=== PATIENT | female | born 1940 | race Caucasian/White ===

== ENCOUNTER 2022-01-30 15:29 | Outpatient (REF) | payer MEDICARE, SELFPAY ==
[2022-01-30 16:21] LABS: Blood Urea Nitrogen 17 mg/dL (9-16); Estimated Glomerular Filt Rate > 60
[2022-01-30 16:31] LABS: Erythrocyte Sedimentation Rate 11 MM/HR (0-20)
[2022-02-01 18:01] LABS: Lyme Abs Screen <0.90 index
== END 2022-01-30 15:30 | disposition home or self-care (01) ==
LOC: HO.LAB 15:29
PROVIDERS: PCP Physician Assistant Medical; Visit Provider Psychiatry & Neurology Neurology
DX: G43.909 Migraine, unspecified, not intractable, without status migrainosus (principal); G93.9 Disorder of brain, unspecified
CPT/HCPCS: 36415; 82565; 84520; 85652; 86617; 86618

== ENCOUNTER 2022-02-08 11:06 | Outpatient (REF) | payer MEDICARE, OTHER, SELFPAY ==
--- NOTE | ~2022-02-08 | MR_ITS ---
EXAMINATION: MR BRAIN WITHOUT AND WITH CONTRAST CLINICAL INFORMATION: 81-year-old with previous diagnosis of trigeminal and occipital neuralgia, with pain in head. Evaluate for brain lesion. COMPARISON: Outside CT brain report from 12/26/2021. TECHNIQUE: Multiplanar, multisequence MRI of the brain was obtained before and after the intravenous administration of 7 mL Gadavist. FINDINGS: Brain Volume: Mild generalized brain parenchymal volume loss without focal regional predominance within the limitations of a qualitative assessment. Structural: 4 mm benign pineal cyst. Brain and Meninges: DWI sequence demonstrates no restricted diffusion. Specifically, there is no evidence for acute or subacute cerebral ischemia. Numerous patchy zones of FLAIR/T2 signal hyperintensity in the subcortical and deeper white matter of both cerebral hemispheres with extensive confluent deep periventricular T2 hyperintensity which is noted to be relatively T1 hypointense with no abnormal enhancement consistent with advanced chronic ischemic microangiopathy and/or subcortical arteriosclerotic encephalopathy. Prominent perivascular spaces are noted at the inferolateral basal ganglia bilaterally. Gradient refocused imaging demonstrates no evidence for hemorrhage, hemosiderin staining or abnormal mineral deposition. No extra-axial fluid collections, intracranial mass lesions, abnormal enhancement, space-occupying process or mass effect are identified. Ventricles and Subarachnoid Spaces: The ventricular system and subarachnoid spaces are consistent with mild generalized volume loss without hydrocephalus. Orbital Structures: Bilateral lens extractions are noted. Otherwise, the visualized orbital structures are grossly unremarkable within the limitations of the study. Vascular: Signal voids are noted in the visualized major intracranial vessels. Osseous Structures, Sinuses/Mastoids, Extracranial Soft Tissues: Minimal retained secretions in the mastoids bilaterally are noted. Osseous marrow signal intensity appears relatively homogenous. Multilevel upper cervical DDD and spondylosis noted, with mild anterolisthesis at C3-C4. Visualized extracranial soft tissue structures appear grossly unremarkable. MR/MR head/brain wo/w con IMPRESSION: 1. Findings suggestive of subcortical arteriosclerotic encephalopathy in the supratentorial brain, as described above, with advanced chronic ischemic microangiopathy noted. 2. No intracranial mass lesions, abnormal enhancement, hemorrhage, extra-axial fluid collection, space-occupying process, mass effect or hydrocephalus.
== END 2022-02-08 11:07 | disposition home or self-care (01) ==
LOC: HO.MRI 11:06
PROVIDERS: PCP Physician Assistant Medical; Visit Provider Psychiatry & Neurology Neurology
DX: G93.9 Disorder of brain, unspecified (principal)
CPT/HCPCS: 70553; A9585

== ENCOUNTER 2025-04-18 15:58 | Outpatient (AMB) | payer MEDICARE, OTHER, SELFPAY ==
--- OUTSIDE RECORDS SUMMARY | 2025-04-18 16:06 | XMS_ITS ---
Author Name [facility] Organization Unknown History of Medication Use Medication Directions Dispensed Refills Start Date End Date Stat us acetaminophen (TYLENOL) 325 MG tablet Take 3 tablets (975 mg total) by mouth every 8 (eight) hours around the clock. 07/04/2020 active Calcium Citrate-Vitamin D (CALCIUM + D PO) Take 1 capsule by mouth every morning. Calcium 1200 mg vitamin D 1000. Stop on 06/26/2020. active metoPROLOL SUCCINATE (TOPROL-XL) 25 MG 24 hr tablet Take 25 mg by mouth every morning. Take day of surgery active raLOXifene (EVISTA) 60 MG tablet Take 60 mg by mouth every morning. Stop 06/13/2020. active triazolam (HALCION) 0.25 MG tablet Take 0.25 mg by mouth every evening. Take the night before surgery active Allergies Allergen Reaction Severity Comment Documented Date Source Statu s SULFA ANTIBIOTICS OTHER (SEE COMMENTS) Headaches 06/07/2020 [facility] active ATORVASTATIN MYALGIA/MYOSITIS/A RTHRALGIA/ARTHRITI S [facility] LATEX RASH/DERMATITIS [facility] STATINS MYALGIA/MYOSITIS/A RTHRALGIA/ARTHRITI S [facility] Problems Problem Status Onset Date Problem Type Date of Resolution Source Primary osteoarthritis of right knee active EncounterDiagnosisAct [facility]
--- OUTSIDE RECORDS SUMMARY | 2025-04-18 16:06 | XMS_ITS | Clinical Summary ---
Author Organization [facility] ity Address [address] [place] [address] Care Team Providers Care Russian Language Instructor Name Role Phone Unavailable Primary Care Provider Unavailabl e Social History Tobacco Use Types Packs/Day Years Used Date Smoking Tobacco: Never Assessed Comments Unknown Sex and Gender Information Value Date Recorded Sex Assigned at Not on file Legal Sex Female 7:24 PM EST Gender Identity Not on file Sexual Orientation Not on file Plan of Treatment Health Maintenance Due Date Last Done Comments DTaP,Tdap,and Td Vaccines (1 - Tdap) 1959 Pneumococcal Vaccine: 50+ Ye ars (1 of 1 - PCV) 1989 Zoster Vaccines (1 of 2) 1989 RSV Immunization Adult Patie nts (1 - 1-dose 75+ series) 2014 COVID-19 Vaccine ( - 2023-2 5 season) 2024 Depression Screening 09/22/2024 Influenza Vaccine (#1) 2025 HIB Vaccines Aged Out No longer eligi ble based on patient's age to complete this topic HPV Vaccines Aged Out No longer eligi ble based on patient's age to complete this topic Hepatitis A Vaccines Aged Out No long er eligible based on patient's age to complete this topic Hepatitis B Vaccines Aged Out No long er eligible based on patient's age to complete this topic IPV Vaccines Aged Out No longer eligi ble based on patient's age to complete this topic MMR Vaccines Aged Out No longer eligi ble based on patient's age to complete this topic Meningococcal ACWY Vaccine Aged Out N o longer eligible based on patient's age to complete this topic Meningococcal B Vaccine Aged Out No l onger eligible based on patient's age to complete this topic RSV Immunization Patients Un kenya 20 months Aged Out No longer eligible b ased on patient's age to complete this topic Varicella Vaccines Aged Out No longer eligible based on patient's age to complete this topic
--- NOTE | 2025-04-18 16:39 | A.OFFVIS_ITS ---
Intake Visit Reasons: Tremor, Parkinsons - last seen 2021 insomnia Allergies amoxicillin Allergy (Unknown, Verified 04/13/25 09:17) Unknown Medication List - Last Reconciled 04/18/25 by Angelo Lindsey MD ezetimibe 10 mg PO DAILY gabapentin mg PO metoprolol succinate ER 25 mg PO DAILY trazodone 50 mg PO DAILY HPI Comments Details: 85 years old woman who I initially saw in 2021 for a headaches syndrome. At that time her sed rate was 11 but later, and [place], she was diagnosed with temporal arteritis and was treated with steroids. This time she was here with a different complain of left hand shaking. She stated that this started around same time and it was slowly worsening. It was getting an embarrassment for her and was noted when she was not using her hand or just sitting with a friends. Sometime her left hand would also get stiff. No difficulty walking or falling or difficulty speaking. [facility] Medical History (Updated 04/18/25 @ 17:01 by Angelo Lindsey MD) Insomnia Cerebral microvascular disease Brain lesion Migraine Cervical spondylitis Review of Systems Const Details: Constitutional:?No fever, chills, fatigue, weight loss, or night sweats. HEENT:?No headache, vision changes, hearing loss, nasal congestion, sore throat. Neurological:? Left hand tremor Psychiatric:?No anxiety, depression, mood swings, sleep disturbance, or hallucinations. Endocrine:?No heat/cold intolerance, polydipsia, polyuria, or hair/skin changes. Hematologic/Lymphatic:?No easy bruising, bleeding, or lymphadenopathy. Integumentary (Skin):?No rash, lesions, itching, or color changes. ? Physical Exam Neuro Other: Mental Status: Alert and oriented to person, place, and time. Normal attention. Normal spontaneous speech, fluency, and comprehension. No obvious issues with mood and memory. Affect is appropriate. Cranial Nerves: CN II: Visual price full to confrontation, visual acuity intact. CN III, IV, : Pupils equal, round, reactive to light and accommodation. Extraocular movements are normal. CN V: Facial sensation is normal. CN VII: Facial movements symmetrical. CN VIII: Hearing intact to bedside conversation is normal. CN IX, X: Palate elevates symmetrically. CN XI: Shoulder shrug and head turn symmetrical. CN XII: Tongue midline without atrophy or fasciculations. Motor: Deep tendon reflexes are trace to absent. Planters are flexor. Extrapyramidal: Mild left hand resting tremor. Speech: Normal; no dysarthria or tremor. 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 She has noted this for last 2-3 years and it has slowly progress. On examination she has mild left hand resting tremor. Otherwise there no overt features of parkinsonism. Recommendations: I recommend a noncontrast MRI of brain to rule out any physical explanation, more commonly ischemic vascular disease. Medicine at this time is probably not needed as this type of tremor is usually more embarrassing than disabling. She was reassured and educated. Orders: Orders MR head/brain wo/w con Today G20.C - Parkinsonism, unspecified Vitamin B12 and Folate Today G31.84 - Mild cognitive impairment of uncertain or unknown etiology Coding Level of Care Code Tele New Pt Level 4 (83383) Diagnoses Parkinsonian tremor G20.C MCI (mild cognitive impairment) G31.84
== END 2025-04-18 17:11 | disposition home or self-care (01) ==
LOC: HO.HSM 15:59
PROVIDERS: PCP Internal Medicine; Referring Provider Internal Medicine; Visit Provider Psychiatry & Neurology Neurology
DX: G20.C Parkinsonism, unspecified (principal); G31.84 Mild cognitive impairment of uncertain or unknown etiology
CPT/HCPCS: 99204

== ENCOUNTER → 2025-04-18 15:58 | Outpatient (BNVA) | payer MEDICARE, OTHER, SELFPAY | PROVIDERS: PCP Internal Medicine; Referring Provider Internal Medicine; Visit Provider Psychiatry & Neurology Neurology | DX: G20.C Parkinsonism, unspecified (principal); G31.84 Mild cognitive impairment of uncertain or unknown etiology | CPT/HCPCS: 99202 ==

== ENCOUNTER → 2025-05-02 12:56 | Outpatient (BNV) | payer MEDICARE, OTHER, SELFPAY | PROVIDERS: PCP Internal Medicine; Visit Provider Radiology Diagnostic Radiology | DX: G20.C Parkinsonism, unspecified (principal) | CPT/HCPCS: 70553 ==

== ENCOUNTER 2025-05-02 12:59 | Outpatient (REF) | payer MEDICARE, OTHER, SELFPAY ==
--- NOTE | ~2025-05-02 | MR_ITS ---
EXAMINATION: MR BRAIN WITHOUT AND WITH CONTRAST CLINICAL INFORMATION: Parkinsonism's. COMPARISON: February 08, 2022. TECHNIQUE: Multiplanar, multisequence MRI of the brain was obtained before and after the intravenous administration of 7.0 mL gadolinium based (Gadavist) without reported immediate complications.. FINDINGS: No restricted diffusion. No acute intracranial hemorrhage.There is no swallow tail abnormality in the substantia nigra. No abnormal enhancement within the intra-axial or the extra-axial compartment of the cranium. No acute intracranial hemorrhage, mass effect, midline shift, hydrocephalus or herniation. Bilateral multifocal patchy and confluent deep periventricular white matter hyperintense T2 FLAIR signal involving centrum semiovale and barrera radiata. Flow-void signal within the main cerebral vessels is normal. Sellar/percent region demonstrated no signal abnormality or gross masses. Craniocervical junction demonstrates normal position of the cerebellar tonsils. MR/MR head/brain wo/w con IMPRESSION: No acute brain abnormality. White matter disease likely related to small vessel occlusive disease. Overall no gross change. Electronically signed by: Mohsen Chan MD 05/02/2025 02:29 PM EDT
--- OUTSIDE RECORDS SUMMARY | 2025-05-02 13:07 | XMS_ITS | Patient Health Record ---
Author Organization [facility] Address [address] [place], [place] [id number] Care Team Providers Care Principal Web Developer Name Role Phone Migration, Provider Unavailable Unavailable Reason For Referral No Information Medications Medication SIG (Take, Route, Frequency, Duration) Notes Start Date End Date Status raloxifene 60 mg *Reorder from [employer] for eRx and Interaction Alerts* Active atorvastatin *Reorder from [facility] for eRx and Interaction Alerts* Active Vitamin D3 Complete *Reorder fro m [facility] for eRx and Interaction Alerts* Active Toprol XL 25 mg *Pick strength-f orm from [facility] for eRX* Active Premarin *Pick strength-f orm from [facility] for eRX* Active Gabapentin 100 mg Ac tive clonazePAM 0.5 mg *Pick strength -form from [facility] for eRX* Active Aspirin Low Dose 81 mg *Pick strength-form from [facility] for eRX* Active Problems Problem Type SNOMED Code ICD Code Onset Dates Problem Status W/U Status Risk Notes Problem Hyperlipidemia (67020316) Hyperlipidemia , unspecified (E78.5) 01/07/20 Active confirmed Problem Heart disease (73500541) Heart disease, unspecified (I51.9) 01/07/20 Active confirmed heart attack 2015 Problem Arthropathy (635252128) Arthropathy, unspecified (M12.9) 01/07/20 Active confirmed Problem Spontaneous ecchymosis (215599035) Spontaneous ecchymoses (R23.3) 01/07/20 Active confirmed Encounters Encounter Location Date Provider Diagnosis [facility] [address] [place] [address] [address] [place], [place] [id number] 05/08/2024 Provider Migration [facility] [address] [place], [place] [id number] 05/09/2024 Provider Migration Plan Of Treatment No Information Insurance Providers Payer Name Payer Address Payer Phone Subscriber Number Group Number Insured Name Patient Relationship to Insured Coverage Start Date Coverage End Date Medicare Part B Id [address] DON[place] Perez [id number] Keke Ventura Self - patient is the insured 6
--- OUTSIDE RECORDS SUMMARY | 2025-05-02 13:07 | XMS_ITS | Clinical Summary ---
Author Organization [facility] ity Address [address] [place] [address] Care Team Providers Care Dairy Processing Supervisor Name Role Phone Unavailable Primary Care Provider [...]
--- OUTSIDE RECORDS SUMMARY | 2025-05-02 13:07 | XMS_ITS | Clinical Summary ---
Author Organization [facility] Address [address] [place] [address] Care Team Providers Care Compliance Mgr Name Role Phone Babar Barry MD Primary Care Provider + Jose Castro MD Unavailable Yoanna Lugo MD Unavailable [phone] Polo Cartagena MD Unavailable [phone] Merrick Wolff MD Unavailable [phone] Allergies Active Allergy Reactions Criticality Noted Date Comments Atorvastatin Myalgia/Myositis/Art hralgia/Arth ritis Low 06/07/2020 Latex Rash/Dermatitis Medium 06/07/2020 Statins Myalgia/Myositis/Art hralgia/Arth ritis Low 06/07/2020 Sulfa Antibiotics Other (See Comments) Medium 06/07/20 20 Headaches Medications metoPROLOL SUCCINATE (TOPROL-XL) 25 MG 24 hr tablet Take 25 mg by mouth every morning. Take day of surgery Active raLOXifene (EVISTA) 60 MG tablet Take 60 mg by mouth every morning. Stop 06/13/2020. Active Calcium Citrate-Vitamin D (CALCIUM + D PO) Take 1 capsule by mouth every morning. Calcium 1200 mg vitamin D 1000. Stop on 06/26/2020. Active triazolam (HALCION) 0.25 MG tablet Take 0.25 mg by mouth every evening. Take the night before surgery Active conjugated estrogens (PREMARIN) vaginal cream Insert into the vagina daily as needed. Do not take day of surgery Active Carboxymethylcellu l-Glycerin (CLEAR EYES FOR DRY EYES OP) Apply 1 drop to eye every morning. Take day of surgery Active ciclopirox (LOPROX) 0.77 % cream Apply 1 application topically daily. Do not apply day of surgery. 03/31/20 Active acetaminophen (TYLENOL) 325 MG tabletIndications: Primary osteoarthritis of right knee Take 3 tablets (975 mg total) by mouth every 8 (eight) hours around the clock. 270 tablet 07/04/20 Active aspirin enteric coated (ECOTRIN LOW STRENGTH) 81 MG EC tabletIndications: Primary osteoarthritis of right knee Take 1 tablet (81 mg total) by mouth every 12 (twelve) hours around the clock. 58 tablet 07/04/20 Active calcium carbonate (TUMS) 500 MG chewable tabletIndications: Primary osteoarthritis of right knee Chew 1 tablet (500 mg total) 3 times daily (every 8 hours) as needed for indigestion or heartburn. 42 tablet 07/04/20 Active docusate sodium (COLACE) 100 MG capsuleIndications :Primary osteoarthritis of right knee Take 1 capsule (100 mg total) by mouth 2 (two) times a day. 28 capsule 07/04/20 Active methocarbamol (ROBAXIN) 750 MG tabletIndications: Primary osteoarthritis of right knee Take 1 tablet (750 mg total) by mouth 3 (three) times a day as needed for muscle spasms. 42 tablet 07/04/20 Active multivitamin with minerals Tab tabletIndications: Primary osteoarthritis of right knee Take 1 tablet by mouth daily. Do not start before July 05, 2020. 30 tablet 07/05/20 Active senna-docusate (SENNA-S) 8.6-50 MGIndications:Prim pineda osteoarthritis of right knee Take 2 tablets by mouth nightly. 28 tablet 07/04/20 Active ondansetron (ZOFRAN-ODT) 4 MG disintegrating tabletIndications: Primary osteoarthritis of right knee Take 1 tablet (4 mg total) by mouth 3 times daily (every 8 hours) as needed for nausea or vomiting. Place tablet on tongue to dissolve. 18 tablet 07/04/20 Active traMADol (ULTRAM) 50 MG tabletIndications: Primary osteoarthritis of right knee Take 1 tablet (50 mg total) by mouth 3 times daily (every 8 hours) as needed for severe pain. 10 tablet 07/08/20 20 Active clindamycin (CLEOCIN) 300 MG capsuleIndications :Primary osteoarthritis of right knee Take THREE capsules ( 900 mg) ONE hour prior to dental work . 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 Hypertension PONV (postoperative nausea and vomiting) Hyperlipidemia Insomnia Arthritis Overview (07/02/2020): Osteoarthritis both knees, predominantly patellofemoral; plan right knee replacement 07/03/2020 Latex allergy Family History Medical History Relation Name Comments No Known Problems Brother 1 No Known Problems Brother 2 No Known Problems Brother 3 No Known Problems Brother 4 Brain cancer Sister No Known Problems Son 1 Benjy No Known Problems Son 2 Babar Relation Name Status Comments Brother 1 Alive Brother 2 Alive Brother 3 Alive Brother 4 Alive Father (Age 90) Mother (Age 95) Sister Son 1 Benjy Alive Son 2 Babar Alive Social History Tobacco Use Types Packs/Day Years Used Date Smoking Tobacco: Former Cigarettes Q uit: 2006 Smokeless Tobacco: Never Comments:1 pack per week -af ter Alcohol Use Standard Drinks/Week Comments Yes 0 (1 standard drink = 0.6 oz pure alcohol) 1-2 drinks per week -will stop before surgery Comments Unknown Sex and Gender Information Value Date Recorded Sex Assigned at Not on file Legal Sex Female 7:59 AM EDT Gender Identity Not on file Sexual Orientation Not on file Last Filed Vital Signs Vital Sign Reading Time Taken Comments Blood Pressure 114/53 07/04/2020 1:55 PM EDT Pulse 63 07/04/2020 1:55 PM EDT Temperature 36.4 C (97.6 F) 07/04/2020 1:55 PM EDT Respiratory Rate 16 07/04/2020 1:55 PM EDT Oxygen Saturation 99% 07/04/2020 1:55 PM EDT Inhaled Oxygen Concentration - - Weight 68.9 kg (152 lb) 07/03/2020 7:08 AM EDT Height 157.5 cm (5' 2 ) 07/03/2020 7:08 AM EDT Body Mass Index 27.8 07/03/2020 7:08 AM EDT Plan of Treatment Health Maintenance Due Date Last Done Comments COVID-19 Vaccine (#1) 1944 DTaP/Tdap/Td Vaccines (1 - Tdap) 1958 Pneumococcal Vaccines 50+ (1 of 2 - PCV) 1958 Zoster (Shingles) Vaccine (1 of 2) 1958 DXA Bone Density (Females,Ag es 65 and older) 2004 RSV Vaccine 60 years and old er and Patients (1 - 1-dose 75+ series) 2014 Influenza Vaccine 04/22/2025 05/09/2020 Hepatitis B Vaccines Aged Out No long er eligible based on patient's age to complete this topic Medical Devices Implanted Type Area Plant Tour Guide Device Identifier Shelf Expiration Date Model / Serial / Lot 6191-1-001 Cement Bone Smpx P Radiopaque Fd Sterl - [id number] Implanted:Qty : 2 on 07/03/2020 by Polo Nieto MD at [facility] Cement Right: Knee [employer] - DIV STRY 02/19/2022 6191-1-0 01 / / [id number] 5515-F-302 Component Femoral 3 Knee Right Cmnt Posterior Stab Trthln - [id number] Implanted:Qty : 1 on 07/03/2020 by Polo Nieto MD at [facility] Joint Prosthesis Right: Knee DIONICIO tocario - DIV STRY [id number] 12/26/2023 5515-F-3 02 / / [id number] 5520-B-300 Baseplate Tibial Trthln 3 Knee Prim Cement - [id number] Implanted:Qty : 1 on 07/03/2020 by Polo Nieto MD at [facility] Joint Prosthesis Right: Knee [employer]UMENTS - DIV STRY [id number] 04/19/2024 5520-B-3 00 / / [id number] 5550-G-319 Component Patellar 9mm 31mm Smtr Trthln X3 Knee - [id number] Implanted:Qty : 1 on 07/03/2020 by Polo Nieto MD at [facility] Joint Prosthesis Right: Knee [employer]UM[employer] - DIV STRY [id number] 01/21/2023 5550-G-3 19 / / [id number] Insert Tibial 3 9mm Knee Brng Posterior Stab Trthln Sterl - [id number] Implanted:Qty : 1 on 07/03/2020 by Polo Nieto MD at [facility] Joint Prosthesis Right: Knee [employer] - DIV STRY 09/28/2024 5532-G-3 09-E / / [id number] 5575-X-000 Peg Fixation Knee Femoral Mdlr Trthln - [id number] Implanted:Qty : 1 on 07/03/2020 by Polo Nieto MD at [facility] Pin Right: Knee [employer] - DIV STRY [id number] 10/14/2023 5575-X-0 00 / / [id number] Insurance * Guarantor: Keke Ventura Account Type Relation to Patient Date of Phone Billing Address Personal/Family Self 1940 [address] [place] [address] [place] PART [place] [id number] [facility]CIAL * Guarantor: Keke Ventura Account Type Relation to Patient Date of Phone Billing Address Personal/Family Self 1940 [address] [place] [address] Advance Directives Documents on File Type Date Recorded Patient Tetryl Boiling Tub Operator Expl anation Power of Test Clerk-Scan 06/12/2020 POWER OF MAIL TECHNICIAN Advance Directive-Scan 06/12/2020 LIVIN G WILL Advance Directive-Scan 06/12/2020 HEALT H CARE PROXY * Full Code (Latest Code Status on File) Date Activated Date Inactivated Comments 07/03/2020 11:03 AM * Full Code Date Activated Date Inactivated Comments 07/03/2020 7:09 AM 07/03/2020 11:03 AM Care Teams Compliance Mgr Relationship Specialty Start Date End Date Babar Barry MD [address] [place] [address] [address] [place] [address] PCP - General 03/21/20 Jose Castro MD [address] [place] [address] [facility] [employer] Interventional Cardiology 05/05/20 Yoanna Lugo MD [facility] [address] Dermatology 06/07/20 Polo Cartagena MD [address] [place] [address] Ophthalmology 06/07/20 Merrick Wolff MD [address] [place] [address] Dr Perea [address] [place] [address] Referring Provider Obstetrics and Gynecology 06/07/20
== END 2025-05-02 13:00 | disposition home or self-care (01) ==
LOC: HO.MRI 12:59
PROVIDERS: PCP Internal Medicine; Visit Provider Psychiatry & Neurology Neurology
DX: G20.C Parkinsonism, unspecified (principal)
CPT/HCPCS: 70553; A9585

== ENCOUNTER 2025-05-25 11:49 | Outpatient (AMB) | payer MEDICARE, OTHER, SELFPAY ==
--- NOTE | 2025-05-25 12:13 | A.OFFVIS_ITS ---
Intake Visit Reasons: After MRI Allergies amoxicillin Allergy (Unknown, Verified 04/13/25 09:17) Unknown HPI Comments Details: 85 years old woman with underlying diagnosis of polymyositis/giant cell arteritis treated by managing manager was here with complain of left hand tremor. She has noted this for last 2-3 years and it has slowly progress. On examination she has mild left hand resting tremor. Otherwise there no overt features of parkinsonism. She is presenting with tremor and potential neurological symptoms that affect her hands and can extend to her arms. The tremor began during a course of prednisone treatment and has persisted despite cessation. It worsens with anxiety, stress, and fatigue, impacting her dexterity and causing concerns about progression in daily function. The patient has been diagnosed with severe cerebral microvascular disease, indicated by white matter changes on MRI, consistent with microvascular ischemia. This finding is unchanged from previous MRIs. She questions whether this contributes to her symptoms and wonders about vascular parkinsonism, although classical Parkinsonian features are absent per clinical assessment. A significant family history of long-lived relatives without vascular or neurodegenerative issues is noted. The patient remains active, engaging in regular walking, and seeks to manage her anxiety, which she perceives affects her symptoms. She previously managed prednisone-induced symptoms and is now exploring Carbidopa-Levodopa for symptom relief, while she also discusses non- pharmacologic coping strategies. [facility] Medical History (Updated 05/25/25 @ 12:38 by Angelo Lindsey MD) Insomnia Cerebral microvascular disease Brain lesion Migraine Cervical spondylitis Review of Systems Const Details: - Neurological: Reports tremor affecting hands and extending to arms, worse with stress and anxiety. Denies classical Parkinsonian features such as facial expression loss or bradykinesia. - Musculoskeletal: Reports decreased fine motor dexterity and general slowness in movements. - Psychiatric: Reports increased anxiety and association with worsening tremor symptoms. 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 I detailed the potential for symptom control through Carbidopa-Levodopa, explicitly noting its role in easing tremor rather than altering the disease course. The patient was reassured about the safety of this medication, being a generic and older treatment with a good safety profile. I emphasized that managing anxiety might aid in symptom reduction, offering the patient alternatives and strategies to address anxiety that may exacerbate neurological symptoms. 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 Category: Medical (4) Cerebral microvascular disease: Comment: MRI brain WO at [facility] in May 2025: Mod to severe MVD, somewhat worse compared to the scan in 2022 Code(s): I67.89 - Other cerebrovascular disease Category: Medical Plan Impression: a: Moderate to severe cerebral microvascular disease of brain, which has somewhat worsened since 2022 b: Left hand Parkinsonian tremor, which probably 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
--- OUTSIDE RECORDS SUMMARY | 2025-05-25 14:23 | XMS_ITS | Clinical Summary ---
Author Organization [facility] ity Address [address] [place] [address] Care Team Providers Care Automation Sales Manager Name Role Phone Unavailable Primary Care Provider [...]
--- OUTSIDE RECORDS SUMMARY | 2025-05-25 14:23 | XMS_ITS | Clinical Summary ---
Author Organization [facility] Address [address] [place] [address] Care Team Providers Care Floral Clerk Name Role Phone Babar Barry MD Primary Care Provider + Jose Castro MD Unavailable Yoanna Lugo MD Unavailable [phone] Polo Cartagena MD Unavailable [phone] Merrick Wolff MD Unavailable [phone] Allergies Active Allergy Reactions Criticality Noted Date [...] 75+ series) 2014 Influenza Vaccine 04/22/2025 05/09/2020 Advance Care Planning Completed 06/12/2020 Hepatitis B Vaccines Aged Out No long er eligible based on patient's age to complete this topic Medical Devices Implanted Type Area Paper Machine Operator Device Identifier Shelf Expiration Date Model / Serial / Lot 6191-1-001 Cement Bone Smpx P Radiopaque Fd Sterl - [id number] Implanted:Qty : 2 on 07/03/2020 by Polo Nieto MD at [facility] Cement Right: Knee [employer] - DIV STR 02/19/2022 6191-1-0 01 / / [id number] 5515-F-302 Component Femoral 3 Knee Right Cmnt Posterior Stab Trthln - [id number] Implanted:Qty : 1 on 07/03/2020 by Polo Nieto MD at [facility] Joint Prosthesis Right: Knee [employer] - DIV STR [id number] 12/26/2023 5515-F-3 02 / / [id number] 5520-B-300 Baseplate Tibial Trthln 3 Knee Prim Cement - [id number] Implanted:Qty : 1 on 07/03/2020 by Polo Nieto MD at [facility] Joint Prosthesis Right: Knee [employer] - DIV STR [id number] 04/19/2024 5520-B-3 00 / / [id number] 5550-G-319 Component Patellar 9mm 31mm Smtr Trthln X3 Knee - [id number] Implanted:Qty : 1 on 07/03/2020 by Polo Nieto MD at [facility] Joint Prosthesis Right: Knee [employer] - DIV STR [id number] 01/21/2023 5550-G-3 19 / / [id number] Insert Tibial 3 9mm Knee Brng Posterior Stab Trthln Sterl - [id number] Implanted:Qty : 1 on 07/03/2020 by Polo Nieto MD at [facility] Joint Prosthesis Right: Knee [employer] - DIV STR 09/28/2024 5532-G-3 09-E / / [id number] 5575-X-000 Peg Fixation Knee Femoral Mdlr Trthln - [id number] Implanted:Qty : 1 on 07/03/2020 by Polo Nieto MD at [facility] Pin Right: Knee [employer] - DIV STR [id number] 10/14/2023 5575-X-0 00 / / [id number] Insurance * Guarantor: Keke Ventura Account Type Relation to Patient Date of Phone Billing Address Personal/Family Self 1940 [address] [place] [address] MEDICARE PART A & [place] [id number] [facility] * Guarantor: Keke Ventura Account Type Relation to Patient Date of Phone Billing Address Personal/Family Self 1940 [address] [place] [address] Advance Directives Documents on File Type Date Recorded Patient Folder Machine Expl anation Power of Timber Cutter-Scan 06/12/2020 POWER OF RISK ENGINEER Advance Directive-Scan 06/12/2020 LIVIN G WILL Advance Directive-Scan 06/12/2020 HEALT H CARE PROXY * Full Code (Latest Code Status on File) Date Activated Date Inactivated Comments 07/03/2020 11:03 AM * Full Code Date Activated Date Inactivated Comments 07/03/2020 7:09 AM 07/03/2020 11:03 AM Care Teams Floral Clerk Relationship Specialty Start Date End Date Babar Barry MD [address] [place] [address] [address] [place] [address] PCP - General 03/21/20 Jose Castro MD [address] [place] [address] Leisure Studies Professor Interventional Cardiology 05/05/20 Yoanan Lguo MD [address] [place] [address] [address] [place] [address] Dermatology 06/07/20 Polo Cartagena MD [address] [place] [address] Ophthalmology 06/07/20 Merrick Wolff MD [address] [place] [address] Dr Pe[address] [place] [address] Referring Provider Obstetrics and Gynecology 06/07/20
== END 2025-05-25 12:37 | disposition home or self-care (01) ==
LOC: HO.HSM 11:50
PROVIDERS: PCP Internal Medicine; Visit Provider Psychiatry & Neurology Neurology
DX: G20.C Parkinsonism, unspecified (principal); G21.4 Vascular parkinsonism; G31.84 Mild cognitive impairment of uncertain or unknown etiology; I67.89 Other cerebrovascular disease
CPT/HCPCS: 99214

== ENCOUNTER → 2025-05-25 11:49 | Outpatient (BNVA) | payer MEDICARE, OTHER, SELFPAY | PROVIDERS: PCP Internal Medicine; Visit Provider Psychiatry & Neurology Neurology | DX: G21.4 Vascular parkinsonism (principal); G31.84 Mild cognitive impairment of uncertain or unknown etiology | CPT/HCPCS: 99212 ==

== ENCOUNTER 2025-07-13 10:58 | Outpatient (AMB) | payer MEDICARE, OTHER, SELFPAY ==
--- NOTE | 2025-07-13 11:32 | MHC.OFFVIS ---
Intake Visit Reasons: tremors Allergies amoxicillin Allergy (Unknown, Verified 04/13/25 09:17) Unknown Medication List - Last Reconciled 07/13/25 by Gladys Freire MD alendronate 70 mg PO QWEEK aspirin 81 mg PO DAILY carbidopa-levodopa 25-100 mg (Sinemet) 1 tab orally am and noontime; ezetimibe 10 mg PO DAILY gabapentin 600 mg PO ONCE metoprolol succinate ER 25 mg PO DAILY solifenacin 5 mg PO DAILY trazodone 50 mg PO DAILY HPI Comments Details: 85 years old right handed woman with underlying diagnosis of polymyositis/giant cell arteritis 3 years ago treated by asphalt paving foreman with steroids for 6 months. Elevated sedrate and positive biopsy . She also had headaches and jaw pain, scalp tenderness and double vision. In the last 3 years she has had left hand tremor. She has noted this for last 2-3 years and it has slowly progress. She has trouble folding clothes. Eating is Ok. No functional impairment. On examination she has mild left hand resting tremor. Otherwise there no overt features of parkinsonism.Slight dragging of left leg on walking at times [facility] Medical History (Updated 07/13/25 @ 12:14 by Gladys Freire MD) Insomnia Cerebral microvascular disease Brain lesion Migraine Cervical spondylitis Review of Systems Const Details: Tremor left hand. some clumsiness left hand. Physical Exam Neuro Other: Typical parkinsonian tremor of the left hand at rest with a moderate amplitude and 4 hertz frequency. Minimal cogwheeling of the left upper extremity. She occasionally shuffles with the left leg and hears a dragging. No other bradykinesia or other overt signs of Parkinson's disease at this time. Assessment & Plan Assessment & Plan (1) Parkinsonian tremor: Code(s): G20.C - Parkinsonism, unspecified Category: Medical (2) Cerebral microvascular disease: Comment: MRI brain WO at [facility] [place] in May 2025: Mod to severe MVD, somewhat worse compared to the scan in 2022 Code(s): I67.89 - Other cerebrovascular disease Category: Medical (3) Parkinson's disease: Code(s): G20 - Parkinson's disease Category: Medical Plan Impression: a: Moderate to severe cerebral microvascular disease of brain, which has somewhat worsened since 2022 b: Left hand Parkinsonian tremor, which probably is related to MVD c: MCI related to MVD May start Sinemet 25/100 bid if she feels her sx are getting worse. Coding Level of Care Code New Pt Level 5 (89230) Diagnoses Parkinsonian tremor G20.C Cerebral microvascular disease I67.89 Parkinson's disease G20
--- OUTSIDE RECORDS SUMMARY | 2025-07-13 14:36 | XMS_ITS | Clinical Summary ---
Author Organization [facility] ity Address [address] [place] [address] Care Team Providers Care Frame Operator Name Role Phone Unavailable Primary Care Provider [...] nts (1 - 1-dose 75+ series) 2014 Depression Screening 09/22/2024 COVID-19 Vaccine (1 - 2023-2 5 season) 2025 Influenza Vaccine (#1) 2025 HIB Vaccines Aged [...]
--- OUTSIDE RECORDS SUMMARY | 2025-07-13 14:36 | XMS_ITS | Clinical Summary ---
Author Organization [facility] Address [address] [place] [address] Care Team Providers Care Document Management Analyst Name Role Phone Babar Barry MD Primary Care Provider + Jose Castro MD Unavailable Yoanna Lugo MD Unavailable [phone] Polo Cartagena MD Unavailable [phone] Merrick Wolff MD Unavailable [phone] Allergies Active Allergy Reactions Criticality Noted Date [...] es 65 and older) 2004 RSV Vaccine 50 years and old er and Patients (1 - 1-dose 75+ series) 2014 Influenza Vaccine 04/22/2025 05/09/2020 Advance Care Planning Completed 06/12/2020 Hepatitis B Vaccines Aged Out No long er eligible based on patient's age to complete this topic Medical Devices Implanted Type Area Keno Dealer Device Identifier Shelf Expiration Date Model / Serial / Lot 6191-1-001 Cement Bone Smpx P Radiopaque Fd Sterl - [id number] Implanted:Qty : 2 on 07/03/2020 by Polo Nieto MD at [facility] Cement Right: Knee [employer] - DIV STRY 02/19/2022 6191-1-0 01 / / [id number] 5515-F-302 Component Femoral 3 Knee Right Cmnt Posterior Stab Trthln - [id number] Implanted:Qty : 1 on 07/03/2020 by Polo Nieto MD at [facility] Joint Prosthesis Right: Knee [employer] - DIV STRY [id number] 12/26/2023 5515-F-3 02 / / [id number] 3D 5520-B-300 Baseplate Tibial Trthln 3 Knee Prim Cement - [id number] Implanted:Qty : 1 on 07/03/2020 by Polo Nieto MD at [facility] Joint Prosthesis Right: Knee [employer] - DIV STRY [id number] 04/19/2024 5520-B-3 00 / / [id number] 5550-G-319 Component Patellar 9mm 31mm Smtr Trthln X3 Knee - [id number] Implanted:Qty : 1 on 07/03/2020 by Polo Nieto MD at [facility] Joint Prosthesis Right: Knee [employer] - DIV STRY [id number] 01/21/2023 5550-G-3 19 / / [id number] Insert Tibial 3 9mm Knee Brng Posterior Stab Trthln Sterl - [id number] Implanted:Qty : 1 on 07/03/2020 by Polo Nieto MD at [facility] Joint Prosthesis Right: Knee [employer] - DIV STRY 09/28/2024 5532-G-3 09-E / / [id number] 5575-X-000 Peg Fixation Knee Femoral Mdlr Trthln - [id number] Implanted:Qty : 1 on 07/03/2020 by Polo Nieto MD at [facility] Pin Right: Knee [employer] - DIV STRY [id number] 10/14/2023 5575-X-0 00 / / [id number] Insurance * Guarantor: Keke Ventura Account Type Relation to Patient Date of Phone Billing Address Personal/Family Self 1940 [address] [place] [address] [place] PART A [place] [id number] [facility] * Guarantor: Keke Ventura Account Type Relation to Patient Date of Phone Billing Address Personal/Family Self 1940 [address] [place] [address] Advance Directives Documents on File Type Date Recorded Patient Floor Finisher Helper Expl anation Power of Clinical Rehabilitation Liaison-Scan 06/12/2020 POWER OF WAITER/WAITRESS CAPTAIN Advance Directive-Scan 06/12/2020 LIVIN G WILL Advance Directive-Scan 06/12/2020 HEALT H CARE PROXY * Full Code (Latest Code Status on File) Date Activated Date Inactivated Comments 07/03/2020 11:03 AM * Full Code Date Activated Date Inactivated Comments 07/03/2020 7:09 AM 07/03/2020 11:03 AM Care Teams Document Management Analyst Relationship Specialty Start Date End Date Babar Barry MD [address] [place] [address] [address] [place] [address] PCP - General 03/21/20 Jose Castro MD [address] [place] [address] Prison Guard Supervisor Interventional Cardiology 05/05/20 Yoanna Lugo MD [address] [place] [address] 5 [place] [address] Dermatology 06/07/20 Polo Cartagena MD [address] [place] [address] Ophthalmology 06/07/20 Merrick Wolff MD [address] [place] [address] Dr Pe[address] [place] [address] Referring Provider Obstetrics and Gynecology 06/07/20
== END 2025-07-13 12:20 | disposition home or self-care (01) ==
PROVIDERS: PCP Internal Medicine; Visit Provider Psychiatry & Neurology Neurology
DX: G20.C Parkinsonism, unspecified (principal); I67.89 Other cerebrovascular disease
CPT/HCPCS: 99214

== ENCOUNTER → 2025-07-13 10:58 | Outpatient (BNVA) | payer MEDICARE, OTHER, SELFPAY | PROVIDERS: PCP Internal Medicine; Visit Provider Psychiatry & Neurology Neurology | DX: G20.C Parkinsonism, unspecified (principal); I67.89 Other cerebrovascular disease | CPT/HCPCS: 99212 ==